=== PATIENT | male | born 1930 ===

== ENCOUNTER 2018-06-02 09:12 | Emergency (ER) | payer MEDICARE ==
[2018-06-02 09:15] VITALS: BMI 25.7
[2018-06-02 09:32] LABS: BASO # 0.2 K/uL (0.0-0.2); BASO % 0.8 % (0.0-2.0); EOS # 0.3 K/uL (0.0-0.7); EOS % 1.2 % (0.0-4.0); HEMOGLOBIN 10.8 g/dL (12.0-18.0); LYMPH # 4.1 K/uL (1.0-4.3); LYMPH % 19.4 % (20.0-40.0); MEAN CELL VOLUME 88.2 fL (80.0-94.0); MEAN CORPUSCULAR HEMOGLOBIN 27.1 pg (27.0-31.0); MEAN CORPUSCULAR HGB CONC 30.7 g/dL (33.0-37.0); MEAN PLATELET VOLUME 9.3 fL (7.2-11.7); MONO # 1.2 K/uL (0.0-0.8); MONO % 5.9 % (0.0-10.0); NEUT # 15.1 K/uL (1.8-7.0); NEUT % 72.7 % (50.0-75.0); NRBC % 0.1 % (0.0-2.0); RBC 3.99 Mil/uL (4.40-5.90); RED CELL DISTRIBUTION WIDTH 15.8 % (11.5-14.5); WHITE BLOOD COUNT 20.8 K/uL (4.8-10.8)
[2018-06-02 09:34] VITALS: TEMP 100.1
[2018-06-02 09:41] LABS: INR 2.1
[2018-06-02 09:50] VITALS: O2SAT 74
[2018-06-02 09:51] VITALS: RESP 14
[2018-06-02 10:00] LABS: ALB/GLOB RATIO 1.2 (1.0-2.1); CALCIUM 8.2 mg/dl (8.6-10.4)
[2018-06-02 10:13] LABS: TROPONIN I 37.1 ng/mL (0.00-0.120)
--- NOTE | 2018-06-02 10:16 | RAD ---
Date of service: 06/02/2018 HISTORY: SOB COMPARISON: None available. FINDINGS: LUNGS: Extensive infiltrates identified bilaterally, diffusely with right apical pleural thickening present. Endotracheal tube terminates 12 mm above the sigifredo. External pacemaker in position. PLEURA: No significant pleural effusion identified, no pneumothorax apparent. CARDIOVASCULAR: No aortic atherosclerotic calcification present. Normal cardiac size. No pulmonary vascular congestion. OSSEOUS STRUCTURES: No significant abnormalities. VISUALIZED UPPER ABDOMEN: Normal. OTHER FINDINGS: None. IMPRESSION: Diffuse bilateral pulmonary infiltrates appreciated greater at the right than left lung. ET tube in good apparent position. External pacemaker placed.
[2018-06-02 10:19] VITALS: BP 41/23
--- NOTE | 2018-06-02 10:21 | C.PDOC ---
History Of Present Illness 87-year-old male, is brought to the emergency department by ALS, after being found unresponsive at home. Patient was sitting on the couch waiting for his tea at 08:05, when found him unresponsive. EMS was called and CPR started on scene. Patient was found to be in v-fib, he was shocked and given epix3 with ROSC. Patient was intubated, and lose pulse again, given 1 epi with ROSC. Pt brought to ED at 09:14 and found to be in asystole. He was given 1 epi with ROSC. All other Hx limited. Time Seen by Provider: 06/02/18 09:14 Chief Complaint (Nursing): Cardiac Arrest History Per: EMS Past Medical History Reviewed: Historical Data, Nursing Documentation, Vital Signs Vital Signs: Last Vital Signs Temp 100.1 F H 06/02/18 09:21 Pulse 32 L 06/02/18 10:04 Resp 14 06/02/18 10:04 BP 56/37 L 06/02/18 09:59 Pulse Ox 74 L 06/02/18 09:30 Family History: States: No Known Family Hx - Social History Hx Alcohol Use: No Hx Substance Use: No - Immunization History Hx Tetanus Toxoid Vaccination: No Hx Influenza Vaccination: No Hx Pneumococcal Vaccination: No Review Of Systems Review Of Systems: ROS cannot be obtained secondary to pt's inabilty to answer questions. Physical Exam - Physical Exam Skin: Warm, Dry Head: Atraumatic, Normacephalic Eye(s): bilateral: Other (dilated) Nose: Normal Lips: Normal Appearing Chest: Symmetrical Respiratory: No Accessory Muscle Use Gastrointestinal/Abdominal: Soft, No Tenderness Extremity: No Deformity ED Course And Treatment - Laboratory Results Result Diagrams: 06/02/18 09:29 06/02/18 09:29 ECG: Interpreted By Me, Viewed By Me Interpretation Of ECG: T wave changes in 2, [address] segment changes in V5 and V6 O2 Sat by Pulse Oximetry: 74 Medical Decision Making Medical Decision Makin:[address] Fernando, awaiting decision for bottle labeler Dr Fernando elects not to send pt to bottle labeler, suggests code freeze Case discussed with Roberto Foote, orders code freeze Case discussed with Dr Fernando, discussed that pt lost pulse three times in ED with downtime of thirty minutes. family states they do not want further treatment or resuscitation if pt is to arrest again. DNR signed 1025 time of ME notified. PMD notified, certificate initiated. Disposition - Disposition Disposition: WITH WITHOUT AUTOPSY Disposition Time: 10:25 Condition: Forms: [email or web address] (Urdu) - Clinical Impression Clinical Impression: Cardiac arrest Critical Care Time - Critical Care Note Total Time (in mins): 60 Documented critical care: time excludes all time spent performing seperately billable procedures. - Scribe Statement The provider has reviewed the documentation as recorded by the Scribe (Shanique Fernando) Provider Attestation: All medical record entries made by the Scribe were at my direction and personally dictated by me. I have reviewed the chart and agree that the record accurately reflects my personal performance of the history, physical exam, medical decision making, and the department course for this patient. I have also personally directed, reviewed, and agree with the discharge instructions and disposition.
[2018-06-02 10:54] VITALS: PULSE 0
--- NOTE | 2018-06-03 21:46 | CARD ---
APPROVED REPORT Date of service: 06/02/2018 EKG Measurement Heart [id number] IN 216P [id number] <Conclusion> Sinus rhythm with 1st degree AV block Low voltage QRS ST elevation, consider inferior injury or acute infarct ACUTE ME / STEMI Consider right ventricular involvement in acute inferior infarct Abnormal ECG
== END 2018-06-02 15:05 ==
LOC: C.ER 09:12
DX: I46.9 Cardiac arrest, cause unspecified (principal)
CPT/HCPCS: 71045; 80053; 82948; 83605; 83735; 83880; 84484; 85025; 85610; 85730; 87040; 93005; 99285; J0171